=== PATIENT | male | born 1970 | race Caucasian/White ===

== ENCOUNTER 2017-01-09 12:34 | Emergency (ER) | payer OTHER ==
[~2017-01-09] VITALS: Ht 185.4 cm; Wt 96.0 kg
[2017-01-09] MEDS ORDERED: SKELAXIN800 MG PO (17:46)
[2017-01-09] MEDS ORDERED: MOTRIN600 MG PO (17:46)
[2017-01-09 18:02] VITALS: BP 120/77
== END 2017-01-09 18:02 | disposition home or self-care (01) ==
LOC: EME 12:34
DX: S39.012A Strain of muscle, fascia and tendon of lower back, initial encounter (principal); S16.1XXA Strain of muscle, fascia and tendon at neck level, initial encounter; S40.022A Contusion of left upper arm, initial encounter; V49.40XA Driver injured in collision with unspecified motor vehicles in traffic accident, initial encounter; Y92.410 Unspecified street and highway as the place of occurrence of the external cause
CPT/HCPCS: 72100; 73090; 99281; 99283